=== PATIENT | male | born 1955 | race Hispanic/Latino ===

== ENCOUNTER 2017-06-19 09:17 | Emergency (ER) | payer OTHER ==
[2017-06-19 09:26] VITALS: BMI 28.8
[2017-06-19 09:35] VITALS: TEMP 97.9
--- NOTE | 2017-06-19 10:00 | ED PDOC ---
Arrival/HPI - General Chief Complaint: Lower Extremity Problem/Injury Time Seen by Provider: 06/19/17 09:45 Historian: Patient - History of Present Illness Narrative History of Present Illness (Text): 06/19/17 10:00 62-year-old male with a history of arthritis presents today with a two-week history of worsening left leg pain. Patient complaining of pain to the anterior and posterior aspects of the left knee. He denies any recent trauma or injury. Patient states he has been going to the gym frequently. Patient states she has a history of arthritis and has bilateral hip replacements due to arthritis. He denies numbness weakness or tingling in the extremity. Patient states he is having difficulty getting up from a sitting position due to the severe pain. She states she's been taking Tylenol for pain and occasionally will take a Percocet pain is very severe. Time/Duration: > week (2weeks) Symptom Course: Worsening Quality: Aching Severity Level: 8 Past Medical History - Provider Review Nursing Documentation Reviewed: Yes - Infectious Disease Hx of Infectious Diseases: None - Tetanus Immunization Tetanus Immunization: Unknown - Cardiac Hx Cardiac Disorders: Yes Hx Hypertension: Yes - Pulmonary Hx Respiratory Disorders: Yes Hx Chronic Obstructive Pulmonary Disease (COPD): Yes Hx Emphysema: Yes - Neurological Hx Neurological Disorder: No - HEENT Hx HEENT Disorder: No - Renal Hx Renal Disorder: No - Endocrine/Metabolic Hx Endocrine Disorders: No - Hematological/Oncological Hx Cancer: Yes (prostate) Other/Comment: prostate cancer and surgery - Integumentary Hx Dermatological Disorder: Yes Hx Melanoma: Yes - Musculoskeletal/Rheumatological Hx Musculoskeletal Disorders: Yes Hx Arthritis: Yes - Gastrointestinal Hx Gastrointestinal Disorders: No - Genitourinary/Gynecological Hx Genitourinary Disorders: Yes Hx Prostate Cancer: Yes - Psychiatric Hx Psychophysiologic Disorder: No Hx Substance Use: No - Past Surgical History Past Surgical History: No Previous - Surgical History Hx Joint Replacement: Yes (R hip) Hx Orthopedic Surgery: Yes Other/Comment: prostatectomy, resection of perinephric mass, melanoma - Anesthesia Hx Anesthesia: Yes Hx Anesthesia Reactions: No Hx Malignant Hyperthermia: No - Suicidal Assessment Feels Threatened In Home Enviroment: No Family/Social History - Physician Review Nursing Documentation Reviewed: Yes Family/Social History: Unknown Family HX Smoking Status: Heavy Smoker > 10 Cigarettes Daily Hx Alcohol Use: No Hx Substance Use: No Hx Substance Use Treatment: No Allergies/Home Meds Allergies/Adverse Reactions: Allergies No Known Allergies Allergy (Verified 06/19/17 09:26) Review of Systems - Review of Systems Constitutional: absent: Fatigue, Fevers Respiratory: absent: SOB, Cough Cardiovascular: absent: Chest Pain, Palpitations Gastrointestinal: absent: Abdominal Pain, Nausea, Vomiting Musculoskeletal: Arthralgias (Left leg, left knee). absent: Back Pain, Neck Pain Skin: absent: Rash, Pruritis Neurological: absent: Headache, Dizziness Psychiatric: absent: Anxiety, Depression Physical Exam Vital Signs Reviewed: Yes Vital Signs Temp Pulse Resp BP Pulse Ox 06/19/17 11:17 89 18 121/75 95 06/19/17 09:30 97.9 F 96 H 19 120/87 94 L Temperature: Afebrile Blood Pressure: Normal Pulse: Regular Respiratory Rate: Normal Appearance: Positive for: Well-Appearing, Non-Toxic, Comfortable Pain Distress: None Mental Status: Positive for: Alert and Oriented X 3 - Systems Exam Head: Present: Atraumatic Mouth: Present: Moist Mucous Membranes Neck: Present: Normal Range of Motion Respiratory/Chest: Present: Clear to Auscultation, Good Air Exchange. No: Respiratory Distress, Accessory Muscle Use Cardiovascular: Present: Regular Rate and Rhythm, Normal S1, S2. No: Murmurs Lower Extremity: Present: Normal Inspection, NORMAL PULSES, Normal ROM, Tenderness (left leg; + ttp over anterior and posterior aspect of left leg; no edema, no erythema; no ecchymosis; full rom of knee with pain. no calf tenderness. sensation and distal pulses intact. cap refill <2. ), Neurovascularly Intact, Capillary Refill < 2 s. No: Swelling, Erythema, Deformity, Temperature Abnormalties Neurological: Present: GCS=15 Skin: Present: Warm, Dry, Normal Color. No: Rashes Psychiatric: Present: Alert, Oriented x 3 Medical Decision Making ED Course and Treatment: 06/19/17 10:04 Patient is nontoxic well-appearing in no distress with stable vital signs lungs are clear to auscultation bilaterally. Venous duplex of the left leg; no dvt verbal report by technician telecommunication systems xray left knee; no fracture Patient reassessment; patient is nontoxic well-appearing in no distress with stable vital signs knee immobilizer applied; pt has cane for ambulation I discussed the results with patient about followup with a primary care physician within the next 2 days as well as the orthopedist. I've advised return if symptoms worsen persist or if there's concerning symptoms develop. i advised the patient that although the xrays show no fracture; there is still a possibility for ligamentous or tendon injury the patient must see the orthopedist for further evaluation. Patient verbalizes understanding of discharge instructions and need for immediate followup. Impression: Leg pain, knee pain Motrin every 6 hours as needed for pain rest, ice compression, elevation Followup primary care physician within the next 2 days Follow up with the orthopedist within the next 2 days Return if symptoms worsen persist or if new symptoms develop - RAD Interpretation Radiology Orders: 06/19/17 09:45 KNEE LEFT 2 VIEWS (AP & LAT) [RAD] Stat DUPLEX LOWER EXTRM VEIN LEFT [US] Stat - Medication Orders Current Medication Orders: Discontinued Medications Ketorolac Tromethamine (Toradol) 60 mg IM STAT STA Stop: 06/19/17 10:01 Last Admin: 06/19/17 10:13 Dose: 60 mg Disposition/Present on Arrival - Present on Arrival Any Indicators Present on Arrival: No History of DVT/PE: No History of Uncontrolled Diabetes: No Urinary Catheter: No History of Decub. Ulcer: No History Surgical Site Infection Following: None - Disposition Have Diagnosis and Disposition been Completed?: Yes Diagnosis: Leg pain, Knee pain Disposition: HOME/ ROUTINE Disposition Time: 11:18 Patient Plan: Discharge Condition: GOOD Discharge Instructions (ExitCare): Knee Pain (ED), Leg Pain (ED) Additional Instructions: Motrin every 6 hours as needed for pain rest, ice compression, elevation Followup primary care physician within the next 2 days Follow up with the orthopedist within the next 2 days Return if symptoms worsen persist or if new symptoms develop Prescriptions: Ibuprofen [Motrin] 600 mg PO Q6H PRN #20 tab PRN Reason: pain/fever reduction Referrals: Yogesh Chappell MD [Staff Provider] - Follow up with primary Andrew Nguyen MD [Staff Provider] - Follow up with primary Forms: [employer] (Albanian), WORK NOTE
--- NOTE | 2017-06-19 11:07 | RAD ---
PROCEDURE: Left Knee Radiographs. HISTORY: Pain. COMPARISON: None. FINDINGS: BONES: Normal. No fracture. JOINTS: Normal. No osteoarthritis. JOINT EFFUSION: None. OTHER FINDINGS: None. IMPRESSION: Normal radiographs of the left knee.
[2017-06-19 11:26] VITALS: BP 121/75; PULSE 89; RESP 18; O2SAT 95
--- NOTE | 2017-06-19 19:56 | US ---
PROCEDURE: Left lower extremity venous US HISTORY: Leg pain and swelling. Evaluate for DVT. PHYSICIAN(S): Abhijit Malhotra MD. TECHNIQUE: Duplex sonography and color-flow Doppler with graded compression were used to evaluate the deep venous system of the left lower extremity. FINDINGS: The visualized deep venous system of the left lower extremity is sonographically normal and compressible. Normal wave forms and augmentation are seen. There is no sonographic evidence for deep venous thrombosis in the visualized segments of the left lower extremity. IMPRESSION: 1. No sonographic evidence for deep venous thrombosis in the visualized segments of the left lower extremity.
== END 2017-06-19 11:32 | disposition home or self-care (01) ==
LOC: ED 09:17
DX: M25.562 Pain in left knee (principal); I10 Essential (primary) hypertension; Z96.641 Presence of right artificial hip joint; F17.210 Nicotine dependence, cigarettes, uncomplicated
CPT/HCPCS: 29530; 73560; 93971; 96372; 99283; J1885

== ENCOUNTER 2019-02-10 08:09 | Day surgery (SDC) | payer MEDICARE ==
[2019-02-09 13:26] VITALS: BMI 40.4
[2019-02-10 09:14] LABS: BASO # 0.02 K/mm3 (0.0-2.0); BASO % 0.1 % (0.0-3.0); EOS # 0.1 (0.0-0.7); HEMOGLOBIN 15.1 g/dL (14.0-18.0); LYMPH # 6.7 (1.2-3.4); LYMPH % 47.9 % (22.0-35.0); MEAN CORPUSCULAR HEMOGLOBIN 29.8 pg (25.0-35.0); MEAN CORPUSCULAR HGB CONC 33.5 g/dl (31.0-37.0); MEAN PLATELET VOLUME 11.2 fl (7.0-11.0); MONO # 0.5 (0.1-0.6); MONO % 3.7 % (1.0-6.0); RBC 5.07 10^6/uL (3.5-6.1); RED CELL DISTRIBUTION WIDTH 14.8 % (11.5-14.5)
[2019-02-10 09:24] LABS: ALB/GLOB RATIO 1.4 (1.1-1.8); ALBUMIN 4.7 g/dL (3.0-4.8); ALT/SGPT 30 U/L (7-56); AST/SGOT 55 U/L (17-59); BLOOD UREA NITROGEN 17 mg/dL (7-21); CALCIUM 9.7 mg/dL (8.4-10.5); GFR NON-AFRICAN AMERICAN > 60; HDL CHOLESTEROL 40 mg/dL (29-60)
[2019-02-10 09:35] LABS: LDL CHOLESTEROL 115 mg/dL (0-129)
[2019-02-10 09:54] LABS: INR 0.99; PARTIAL THROMBOPLASTIN TIME 31.9 Seconds (26.9-38.3); PROTHROMBIN TIME 11.2 SECONDS (9.4-12.5)
[2019-02-10] MEDS ORDERED: Propofol 10 mg/ml Inj (20 ML) ONE (10:54)
[2019-02-10] MEDS ORDERED: Succinylcholine 200 mg/10 ml Inj IV ONE (10:55)
[2019-02-10] MEDS ORDERED: Rocuronium 10 mg/ml (5 ml) ONE (10:55)
--- NOTE | 2019-02-10 11:31 | RAD ---
Date of service: 02/10/2019 HISTORY: pre-op COMPARISON: 06/08/2016 TECHNIQUE: 1 view obtained. FINDINGS: LUNGS: No active pulmonary disease. PLEURA: No significant pleural effusion identified, no pneumothorax apparent. CARDIOVASCULAR: No aortic atherosclerotic calcification present. Normal cardiac size. No pulmonary vascular congestion. OSSEOUS STRUCTURES: No significant abnormalities. VISUALIZED UPPER ABDOMEN: Normal. OTHER FINDINGS: None. IMPRESSION: No active disease.
[2019-02-10] MEDS ORDERED: Bupivacaine 0.5% 50 ML IJ ONE ×2 (11:40→11:42)
--- NOTE | 2019-02-10 11:42 | CARD ---
APPROVED REPORT Date of service: 02/10/2019 EKG Measurement Heart [id number] <Conclusion> Normal sinus rhythm Inferior infarct, age undetermined Abnormal ECG
[2019-02-10] MEDS ORDERED: ePHEDrine 50 mg/ml Inj ONE (11:58)
[2019-02-10] MEDS ORDERED: CeFAZolin 1 gm in NS 100ml IVPB ONE (12:15)
[2019-02-10] MEDS ORDERED: Neostigmine Methylsulfate 3mg/3ml Syringe IV ONE ×2 (13:15→13:44)
--- NOTE | 2019-02-10 14:06 | PCM.SURG1 ---
Surgeon's Initial Post Op Note - Surgeon's Notes Surgeon: Dr. Yogi MD Computing Consultant: Dr. Po Hodges Type of Anesthesia: General Endo Anesthesia Administered By: Dr. Jayy Jeronimo Pre-Operative Diagnosis: acute cholecystitis Operative Findings: see operative dictation Post-Operative Diagnosis: same Operation Performed: laparoscopic cholecystectomy w/ intraoperative cholangiogram Specimen/Specimens Removed: gallbladder Estimated Blood Loss: EBL {In ML}: 20 Blood Products Given: N/A Drains Used: Matt Post-Op Condition: Good Date of Surgery/Procedure: 02/10/19 Time of Surgery/Procedure: 14:06
[2019-02-10] MEDS ORDERED: ACETAMINOPHEN 1000 MG PO PRN (14:09)
[2019-02-10] MEDS ORDERED: Albuterol-Ipratrop 3 mg / 0.5 (3 ml) UD IH PRN (14:11)
[2019-02-10] MEDS ORDERED: HYDROmorphone 0.5 mg/0.5 ml ISec IVP PRN (14:18)
[2019-02-10] MEDS ORDERED: Lactated Ringer's 1,000 ML IV SCH (14:30)
--- NOTE | 2019-02-10 15:22 | RAD ---
Date of service: 02/10/2019 PROCEDURE: Operative cholangiogram HISTORY: R/O OBSTRUCTION COMPARISON: TECHNIQUE: 34.9 sec of fluoro time. Cumulative dose 21.98 mGy. Six images submitted FINDINGS: There are no filling defects seen in the common duct. Contrast flows into the duodenum without obstruction. IMPRESSION: As above
[2019-02-10] MEDS: oxyCODONE 5 mg Immediate Release Tab PO PRN ×2 (15:37→21:20)
[2019-02-10] MEDS ORDERED: Pneumococcal 23-Valent Vaccine IM ONE (17:35)
[2019-02-10] MEDS ORDERED: TIZANIDINE HCL 2 MG PO SCH ×2 (18:00)
[2019-02-10] MEDS: Albuterol-Ipratrop 3 mg / 0.5 (3 ml) UD IH SCH (19:29)
[2019-02-10] MEDS ORDERED: ceFAZolin IV 2 gm in 50 mL D5W IVPB STA (19:37)
[2019-02-10] MEDS ORDERED: Oxycodone/Acetaminophen 5/325 mg Tab PO STA (22:12)
[2019-02-10] MEDS ORDERED: Oxycodone/Acetaminophen 10/325 mg Tab PO PRN (22:41)
[2019-02-11 01:07] VITALS: PULSE 87
[2019-02-11 06:30] LABS: BASO # 0.01 K/mm3 (0.0-2.0); BASO % 0.1 % (0.0-3.0); EOS # 0.2 (0.0-0.7); EOS % 0.9 % (1.5-5.0); HEMOGLOBIN 13.4 g/dL (14.0-18.0); LYMPH # 6.9 (1.2-3.4); LYMPH % 41.9 % (22.0-35.0); MEAN CELL VOLUME 91.1 fl (80.0-105.0); MEAN CORPUSCULAR HEMOGLOBIN 29.9 pg (25.0-35.0); MEAN CORPUSCULAR HGB CONC 32.8 g/dl (31.0-37.0); MEAN PLATELET VOLUME 9.9 fl (7.0-11.0); MONO # 1.1 (0.1-0.6); MONO % 6.5 % (1.0-6.0); RBC 4.48 10^6/uL (3.5-6.1); WHITE BLOOD COUNT 16.5 10^3/uL (4.5-11.0)
[2019-02-11 06:59] LABS: TROPONIN I 0.02 ng/mL
[2019-02-11 07:18] LABS: ALB/GLOB RATIO 1.4 (1.1-1.8); ALBUMIN 4.4 g/dL (3.0-4.8); ALT/SGPT 54 U/L (7-56); AST/SGOT 105 U/L (17-59); BLOOD UREA NITROGEN 15 mg/dL (7-21); GFR NON-AFRICAN AMERICAN > 60
[2019-02-11] MEDS: Albuterol-Ipratrop 3 mg / 0.5 (3 ml) UD IH SCH (07:49)
[2019-02-11 08:53] VITALS: BP 148/79; RESP 22; TEMP 98.1; O2SAT 93
[2019-02-11] MEDS ORDERED: Enoxaparin 40 mg Syringe SC SCH (10:00)
[2019-02-11] MEDS ORDERED: Oxycodone/Acetaminophen 10/325 mg Tab PO SCH (10:00)
--- NOTE | 2019-02-11 10:32 | CP.PCM.DIS ---
Provider - Provider Date of Admission: 02/10/19 Attending physician: Robel Calix MD Primary care physician: Andrew Nguyen MD Consults: 02/10/19 14:08 Internal Medicine Consult Routine Comment: Consulting Provider: Andrew Nguyen Consulting Physician: Andrew Nguyen Reason for Consult: medical management post op 02/10/19 17:35 Inpatient DOG BEAUTICIAN Core Measures Referral Routine Comment: Physician Instructions: Reason For Exam: EVALUATION Nursing Referral for Wound Care Routine Comment: POST LAP ARASELI WITH CANDELARIA DRAIN. Physician Instructions: Reason For Exam: EVALUATION Transition In Care/Readmission Reduction Routine Comment: Physician Instructions: Reason For Exam: EVALUATION Time Spent in preparation of Discharge (in minutes): 35 Hospital Course - Lab Results Lab Results: Micro Results 02/10/19 14:55 Other: Please Indicate Gram Stain - Final Most Recent Lab Values WBC 16.5 10^3/uL (4.5-11.0) H 02/11/19 06:00 RBC 4.48 10^6/uL (3.5-6.1) 02/11/19 06:00 Hgb 13.4 g/dL (14.0-18.0) L 02/11/19 06:00 Hct 40.8 % (42.0-52.0) L 02/11/19 06:00 MCV 91.1 fl (80.0-105.0) 02/11/19 06:00 MCH 29.9 pg (25.0-35.0) 02/11/19 06:00 MCHC 32.8 g/dl (31.0-37.0) 02/11/19 06:00 RDW 15.0 % (11.5-14.5) H 02/11/19 06:00 Plt Count 238 10^3/uL (120.0-450.0) 02/11/19 06:00 MPV 9.9 fl (7.0-11.0) 02/11/19 06:00 Neut % (Auto) 50.6 % (50.0-68.0) 02/11/19 06:00 Lymph % (Auto) 41.9 % (22.0-35.0) H 02/11/19 06:00 [place] % (Auto) 6.5 % (1.0-6.0) H 02/11/19 06:00 Eos % (Auto) 0.9 % (1.5-5.0) L 02/11/19 06:00 Baso % (Auto) 0.1 % (0.0-3.0) 02/11/19 06:00 Lymph # (Auto) 6.9 (1.2-3.4) H 02/11/19 06:00 [place] # (Auto) 1.1 (0.1-0.6) H 02/11/19 06:00 Eos # (Auto) 0.2 (0.0-0.7) 02/11/19 06:00 Baso # (Auto) 0.01 K/mm3 (0.0-2.0) 02/11/19 06:00 Absolute Neuts (auto) 8.38 (1.4-6.5) H 02/11/19 06:00 PT 11.2 SECONDS (9.4-12.5) 02/10/19 09:40 INR 0.99 02/10/19 09:40 APTT 31.9 Seconds (26.9-38.3) 02/10/19 09:40 Sodium 138 mmol/L (132-148) 02/11/19 06:00 Potassium 4.5 mmol/L (3.6-5.0) 02/11/19 06:00 Chloride 96 mmol/L (98-107) L 02/11/19 06:00 Carbon Dioxide 34 mmol/L (21-33) H 02/11/19 06:00 Anion Gap 13 (10-20) 02/11/19 06:00 BUN 15 mg/dL (7-21) 02/11/19 06:00 Creatinine 1.0 mg/dl (0.8-1.5) 02/11/19 06:00 Est GFR ( Amer) > 60 02/11/19 06:00 Est GFR (Non-Af Amer) > 60 02/11/19 06:00 Random Glucose 120 mg/dL (70-110) H 02/11/19 06:00 Calcium 9.0 mg/dL (8.4-10.5) 02/11/19 06:00 Total Bilirubin 0.6 mg/dL (0.2-1.3) 02/11/19 06:00 AST 105 U/L (17-59) H D 02/11/19 06:00 ALT 54 U/L (7-56) 02/11/19 06:00 Alkaline Phosphatase 74 U/L (38-126) 02/11/19 06:00 Troponin I 0.02 ng/mL D 02/11/19 06:00 Total Protein 7.5 g/dL (5.8-8.3) 02/11/19 06:00 Albumin 4.4 g/dL (3.0-4.8) 02/11/19 06:00 Globulin 3.1 gm/dL 02/11/19 06:00 Albumin/Globulin Ratio 1.4 (1.1-1.8) 02/11/19 06:00 Triglycerides 226 mg/dL (35-160) H 02/10/19 09:00 Cholesterol 187 mg/dL (130-200) 02/10/19 09:00 LDL Cholesterol Direct 115 mg/dL (0-129) 02/10/19 09:00 HDL Cholesterol 40 mg/dL (29-60) 02/10/19 09:00 Blood Type O POSITIVE 02/10/19 09:00 Antibody Screen Negative 02/10/19 09:00 BBK History Checked Patient has bt 02/10/19 09:00 - Hospital Course Hospital Course: Patient admitted after same day surgery for elective laparoscopic cholecystectomy due to extended post anesthesia respiratory effects. Patient tolerated surgery well, however was retaining CO2 after extubation and had a drain placed overnight due to potential oozing from surgical site, therefore patient was kept for observation as well as pain control. Patient tolerated breakfast this AM, was voiding, ambulating, pain well controlled. Patient stable and ready for d/c home Diagnosis: s/p laparoscopic cholecystectomy due to sympatomic cholelithiasis and recent episode of acute cholecystitis Tobacco abuse Obesity Discharge Exam - Head Exam Head Exam: ATRAUMATIC, NORMAL INSPECTION, NORMOCEPHALIC - Eye Exam Eye Exam: EOMI, Normal appearance - ENT Exam ENT Exam: Mucous Membranes Moist, Normal Exam - Neck Exam Neck exam: Full Rom, Normal Inspection - Respiratory Exam Respiratory Exam: NORMAL BREATHING PATTERN, UNREMARKABLE - Cardiovascular Exam Cardiovascular Exam: REGULAR RHYTHM, +S1, +S2 - GI/Abdominal Exam GI & Abdominal Exam: Soft, Tenderness (mild, over surgical incision sites). absent: Distended (obese), Firm, Guarding, Hernia, Rebound, Rigid Additional comments: Surgical sites x [address] - Extremities Exam Extremities exam: normal inspection - Neurological Exam Neurological exam: Alert, CN II-XII Intact, Oriented x3 - Psychiatric Exam Psychiatric exam: Normal Affect, Normal Mood - Skin Skin Exam: Dry, Intact, Normal Color, Warm Discharge Plan - Follow Up Plan Condition: GOOD Disposition: HOME/ ROUTINE Instructions: Gallstones (DC), Cholecystectomy (DC), Cholecystectomy, Laparoscopic Surgery Additional Instructions: No heavy lifting for 4-6 weeks No sitting in water, ok to shower Leave bandaids overnight You have special tape under the bandaids, do not pick it off, these hoang flake off on their own Ok to resume walking Ok to resume normal diet Avoid constipation Please follow up with Dr. Calix in 1-2 weeks Referrals: Andrew Nguyen MD [Primary Care Provider] - Robel Calix MD [Staff Provider] -
--- NOTE | 2019-02-11 19:34 | OP ---
PROCEDURE DATE: 02/10/2019 SURGEON: Robel Calix MD MAPPING ENGINEER: Flower Orourke DO, PGY-2 SECOND REFRACTORY MANAGER: Clarence Fontenot DO, PGY-1 THERMAL CUTTER HELPER: Rodo Huynh MD, relieved by Augusto Hope DO ANESTHESIA: General endotracheal - Marcaine 0.5% - 21 mL. PREOPERATIVE DIAGNOSES: 1. Recurrent cholecystitis - cholelithiasis. 2. Chronic obstructive pulmonary disease - severe. 3. Morbid obesity. 4. Chronic low back pain. 5. Prostate cancer. POSTOPERATIVE DIAGNOSES: 1. Recurrent cholecystitis - cholelithiasis. 2. Chronic obstructive pulmonary disease - severe. 3. Morbid obesity. 4. Chronic low back pain. 5. Prostate cancer. 6. Pathology pending. PROCEDURE: Laparoscopic cholecystectomy with intraoperative cholangiogram. OPERATIVE INDICATIONS: The patient is a 64-year-old morbidly obese male (5 feet 6 inches, 266 pounds, BMI 41) with recurring bouts of biliary colic, referred by his private physician, Dr. Ousmane Nguyen and after cardiac evaluation with a normal nuclear medicine stress test, he is cleared by Dr. Ivan Deng and description of the proposed surgery with risks, the alternatives and their anticipated outcomes were fully explained. The patient signs the informed consent and is now brought to the same day surgery unit. OPERATIVE NOTE: The patient is brought from the same-day surgical unit where he has been seen by the surgical team and by Anesthesia, confirmed for surgery and brought to the operating room now. He undergoes time-out procedure and is identified by his wristband. He is placed on the table in a supine manner, undergoes the induction of general anesthesia and the insertion of an endotracheal tube. Sequential compression devices are placed on his lower extremities and the abdomen is electrically clipped and prepped with Hibiclens chlorhexidine preparation. The umbilicus is infiltrated with a long-acting bupivacaine, incision made above same and Veress needle inserted into the peritoneal cavity and the abdomen insufflated with carbon dioxide gas to 14 mmHg pressure. The needle was now removed and replaced with an 11 mm blunt port trocar with operating laparoscope visualization on entering the peritoneal cavity. The obturator is removed. The scope is reinserted and the abdomen explored without significant findings. Under direct vision a 5-mm port is placed in the right subxiphoid location, utilizing bupivacaine for all port sites and two 5 mm ports are placed in the right upper quadrant as well. The patient is now rotated to his left side and placed in a reverse Trendelenburg position and the omentum freed from the gallbladder and the gallbladder is found distended and is aspirated and the contents submitted to pathology for culture and sensitivity. The gallbladder is now grasped at the puncture site and again at the fundus at the bottom of the gallbladder, elevated into view and the jonny hepatis is dissected free with significant inflammation and adipose tissue obscuring most of the visualization requiring careful dissection. The cystic duct is then identified for a significant region and further identification of the cystic artery is employed and once the critical view of safety is obtained, the cystic duct is doubly hemoclipped at the gallbladder exit and incision made and a intraoperative cholangiogram catheter inserted, the balloon inflated and contrast instilled into the biliary tree. The upper end of the biliary tree first visualizes and then releasing the balloon which is apparently obstructing part of the common duct, free flow is seen through the entire biliary tree into the duodenum without any evidence of defect or stone and the catheter is now removed and the distal cystic duct hemoclipped with 5 mm clips and the cystic artery likewise hemoclipped and transected. The gallbladder is now removed from the liver bed with prograde dissection, utilizing the electrocautery device for hemostasis and sealing lymphatics. The gallbladder is placed in an EndoCatch, brought up through the umbilical port and submitted to pathology in formalin. A single large stone is palpated within the gallbladder and this will be examined for permanent section examination. The trocar is returned. The patient is placed level supine. The biliary tree is now reexamined in the jonny and bleeding is confirmed to be controlled at this point. Copious liters of saline lavage is employed until the return is completely clear and it is elected at this point to place a 15-Hungarian Matt drain through one of the lateral trocars and secure the liver bed for further bleeding or leakage. The drain is secured with a 2-0 Surgidac polyester suture. The ports are now removed and the umbilical incision is closed with interrupted 0 Dexon [id number] suture until the defect is completely closed by this open technique. Subcutaneous and subcuticular closure is employed with Dermabond adhesive and dry dressings are applied. The patient is awakened, extubated and transported to the recovery room in a satisfactory condition. Sponge, instrument and suture count were verified as correct at the end of the procedure. Estimated blood loss during the procedure was between 20 and 30 mL of blood. The surgical assistants were present throughout the procedure and were extremely essential in the assistance of the dissection and removal of the gallbladder as this patient's extreme body habitus made exposure quite difficult. A decision is made due to the patient's severe COPD and continued smoking status to keep the patient overnight and it was reconfirmed at the end of the procedure when the patient remained quite somnolent and requiring ventilatory support because of CO2 retention from his COPD. On the patient's awakening, he was insistent on leaving but this surgeon insisted that he stay overnight and would leave in the morning without any problem. Robel Calxi MD
--- NOTE | 2019-02-12 01:45 | CON ---
DATE: 02/11/2019 HISTORY OF PRESENT ILLNESS: The patient is a 64-year-old white male known to me from previous admission, went for same day surgery for cholecystectomy and he states he had that almost a month ago when he was out of town, he was treated conservatively and was discharged and he had a scheduled appointment with Dr. Calix who did elective cholecystectomy that was laparoscopic. The patient denies any nausea or vomiting. No history of chest pain. No shortness of breath. PAST MEDICAL HISTORY: Significant for: 1. Hypertension. 2. History of right hip replacement on 07/09/2015 and he has revision done by the orthopedic. 3. He also has a history of nephrectomy. ALLERGIES: HE IS NOT ALLERGIC TO ANY MEDICATION. MEDICATIONS AT HOME: He takes Zanaflex as needed, Percocet as needed, and nortriptyline 10 mg at bedtime. SOCIAL HISTORY: He is an active smoker. Socially drinks. Denies any drug use. PHYSICAL EXAMINATION: GENERAL: He looks comfortable, walking with cane. VITAL SIGNS: He is afebrile, pulse 87, respirations 22, and blood pressure 148/79. LUNGS: Bilateral fair airflow. No rhonchi or crackles. HEART: S1 and S2 audible. ABDOMEN: Soft, palpable discomfort at surgical site. Belly is obese. Bowel sounds are positive. NEUROLOGIC: He is awake, alert, and able to communicate. LABORATORY DATA: WBC 16.5, hemoglobin 13, hematocrit 40, and platelets 230. PT 11.2. INR . Chemistry, sodium 138, potassium 4.5, chloride 96, CO2 of 34, BUN 15, and creatinine 1. Blood sugar is 120. AST . ASSESSMENT: 1. Status post laparoscopic cholecystectomy. 2. History of bilateral hip replacement. 3. Chronic obstructive pulmonary disease. 4. Active smoker. 5. Morbid obesity. 6. Degenerative disk disease. PLAN: The patient is being discharged home on his usual medication. He will take Percocet as needed. He will follow up with Dr. Calix in a week or two. Andrew Nguyen MD
== END 2019-02-11 11:44 | disposition home or self-care (01) ==
LOC: SDS 08:09 → 3RNO 15:20 → SDS 02-11 11:44
PROVIDERS: ATTEND Surgery
DX: K80.12 Calculus of gallbladder with acute and chronic cholecystitis without obstruction (principal); J44.9 Chronic obstructive pulmonary disease, unspecified; I10 Essential (primary) hypertension; E66.01 Morbid (severe) obesity due to excess calories; Z68.41 Body mass index [BMI] 40.0-44.9, adult; C61 Malignant neoplasm of prostate; G89.29 Other chronic pain; Z90.5 Acquired absence of kidney; Z96.643 Presence of artificial hip joint, bilateral
CPT/HCPCS: 36415 ×2; 47563; 71045; 74300; 80053 ×2; 80061; 84484; 85025 ×2; 85610; 85730; 86850; 86900; 87070; 87075; 88304; 93005; 94640 ×2; 94660; J0330; J0690 ×2; J1170; J1650; J1885; J2001; J2405; J2704; J2710; J3010; J7120 ×2